=== PATIENT | female | born 1960 | race Caucasian/White ===

== ENCOUNTER 2025-09-21 13:54 | Outpatient (CLI) | payer BC | END 2025-09-21 13:55 | disposition home or self-care (01) | LOC: CSHULT 13:54 | PROVIDERS: ATTEND Internal Medicine Hematology & Oncology | DX: C50.312 Malignant neoplasm of lower-inner quadrant of left female breast (principal); C50.811 Malignant neoplasm of overlapping sites of right female breast; I35.8 Other nonrheumatic aortic valve disorders | CPT/HCPCS: 93306 ==